=== PATIENT | female | born 1945 | race American Indian/Alaskan Native ===

== ENCOUNTER 2018-09-24 09:51 | Outpatient (CLI) | payer MEDICARE | END 2018-09-24 09:52 | disposition home or self-care (01) | LOC: C.CTH 09:51 ==

== ENCOUNTER 2018-11-12 10:42 | Outpatient (CLI) | payer MEDICARE | END 2018-11-12 10:43 | disposition home or self-care (01) | LOC: C.DEXAIC 10:43 | DX: M81.0 Age-related osteoporosis without current pathological fracture (principal) ==